=== PATIENT | male | born 1970 | race Caucasian/White ===

== ENCOUNTER 2020-12-20 11:54 | Emergency (ER) | payer OTHER ==
[~2020-12-20 11:54] MED LIST: IBUPROFEN800 MG PO; KETOROLAC TROME10 MG PO; PERCOCET 5-3251 EACH PO; PREDNISONE20 MG PO; VIBRAMYCIN100 MG PO
[2020-12-20 13:31] LABS: BASOPHIL 0.4 % (0-2); EOSINOPHIL 0.1 % (0-5); HCT 45.5 % (42.0-52.0); HGB 15.2 g/dl (13.2-18.0); LYMPHOCYTE 11.1 % (15-48); MCH 29.5 pg (25.0-31.0); MCHC 33.4 g/dL (32.0-36.0); MCV 88.2 fL (78.0-100.0); MPV 9.5 fL (6.0-9.5); NEUTROPHIL 77.1 % (41-80); NRBC 0; PLT 263 K/uL (150-400); RBC 5.16 M/uL (4.70-6.00); RDW 13.8 % (11.5-14.0); WBC 11.6 K/uL (4.0-10.5)
[2020-12-20 14:20] LABS: ALBUMIN 3.6 g/dL (3.4-5.0); BILIRUBIN - TOTAL 0.5 mg/dL (0.2-1.0); CREATININE 0.89 mg/dL (0.67-1.17); GLOBULIN (CALCULATION) 4.6 g/dL; POTASSIUM 3.3 mmol/L (3.5-5.1); TOTAL PROTEIN 8.2 g/dL (6.4-8.2)
[2020-12-20 15:23] LABS: LACTIC ACID 1.6 mmol/L (0.4-1.9)
[2020-12-20 16:01] LABS: BILIRUBIN NEGATIVE (NEGATIVE); BLOOD 1+ Ery/uL (NEGATIVE); CLARITY CLEAR (CLEAR); COLOR YELLOW (YELLOW); GLUCOSE (U) NORMAL (NORMAL); LEUKOCYTES NEGATIVE Leu/uL (NEGATIVE); NITRITE NEGATIVE (NEGATIVE); PROTEIN 1+ mg/dL (NEGATIVE); SPECIFIC GRAVITY 1.025 (1.001-1.030); UROBILINOGEN 0.2 mg/dL (0.2-1.0)
[2020-12-20 16:08] LABS: SQUAMOUS EPITHELIAL CELLS RARE; URINARY RBC RARE
[2020-12-20] MEDS ORDERED: NORCO 5-325 TA1 EACH PO (18:09)
[2020-12-20] MEDS ORDERED: CIPRO500 MG PO (18:09)
[2020-12-20] MEDS ORDERED: BENTYL10 MG PO (18:09)
[2020-12-20] MEDS ORDERED: METRONIDAZOLE500 MG PO (18:09)
== END 2020-12-20 19:15 | disposition home or self-care (01) ==
LOC: FER 11:54
PROVIDERS: Emergency Medicine; Nurse Practitioner Family
DX: K52.9 Noninfective gastroenteritis and colitis, unspecified (principal); Z87.891 Personal history of nicotine dependence
CPT/HCPCS: 36415; 80053; 81001; 82150; 83605; 83690; 85025; J1885; J2270; J2405; J7030; Q9967